=== PATIENT | male | born 1990 | race Caucasian/White ===

== ENCOUNTER 2025-02-15 18:04 | Emergency (ER) | payer OTHER ==
[2025-02-15 18:08] VITALS: BP 164/84; PULSE 87; RESP 18; TEMP 98.2; BMI 37.5
[2025-02-15] MEDS ORDERED: IBUPROFEN 600 MG TABLET (FP) PO ONE (19:42)
[2025-02-15] MEDS: IBUPROFEN 600 MG TABLET (FP) PO ONE (19:45)
== END 2025-02-15 20:01 | disposition home or self-care (01) ==
LOC: JER 18:04 → JERFT 18:04
DX: S90.32XA Contusion of left foot, initial encounter (principal); W20.8XXA Other cause of strike by thrown, projected or falling object, initial encounter
CPT/HCPCS: 73630-TC-LT; 99283-25